=== PATIENT | female | born 1965 | race Caucasian/White ===

== ENCOUNTER → 2018-09-07 14:15 | Emergency (ER) | payer BC ==
[~2018-09-07 14:15] MED LIST: cloNIDine TAB* 0.1 MG PO ONE
[2018-09-07 16:52] LABS: ABS Basophils 0.1 10^3/ul (0-0.2); ABS Eosinophils 0.2 10^3/ul (0-0.6); ABS Lymphocytes 3.4 10^3/ul (1.0-4.8); ABS Monocytes 0.6 10^3/ul (0-0.8); ABS Neutrophils 5.9 10^3/ul (1.5-7.7); ABS Nucleated RBC 0 10^3/ul; Eosinophil % 2.1 %; Hematocrit 43 % (33-41); Hemoglobin 14.2 g/dL (12.0-16.0); Lymphocyte % 33.3 %; Mean Corpuscular HGB Conc 33 g/dL (31-36); Mean Corpuscular Hemoglobin 27 pg (27-31); Mean Corpuscular Volume 82 fL (80-97); Mean Platelet Volume 6.4 fL (7.4-10.4); Nucleated Red Blood Cells % 0.2; Platelet Count 372 10^3/uL (150-450); Red Blood Count 5.24 10^6 /uL (3.70-4.87); Red Cell Distribution Width 14 % (10.5-15); White Blood Count 10.1 10^3/uL (3.5-10.8)
[2018-09-07 16:56] LABS: Urine Appearance Clear; Urine Bacteria Absent (Absent); Urine Bilirubin Negative (Negative); Urine Blood 1+ (Negative); Urine Color Straw; Urine Glucose Negative (Negative); Urine Ketones Negative (Negative); Urine Nitrite Negative (Negative); Urine Protein Negative (Negative); Urine Red Blood Cell Trace(0-2/hpf) (Absent); Urine Specific Gravity 1.006 (1.010-1.030); Urine Urobilinogen Negative (Negative); Urine White Blood Cell Absent (Absent)
[2018-09-07 17:08] LABS: BUN/Creatinine Ratio 21.9 (8-20); C Reactive Protein 13.2 mg/L (<8.01); EGFR African American 73.8 (>60); Potassium 4.2 mmol/L (3.5-5.0); Total Bilirubin 0.3 mg/dL (0.2-1.0)
--- NOTE | 2018-09-07 17:37 | ED ---
GI/ HPI - HPI Summary HPI Summary: A 53 y/o female presents to [facility] with a chief complaint of flank pain. She has had the pain for days and says that today is the day that her pain is the worst. Her pain is intermittent and radiates to her back. She denies CP or SOB. She has a Hx of kidney stones, but has no other PMHx. She rates her pain as a 9/10 in severity but refused pain medication. - History of Current Complaint Chief Complaint: EDFlankPain Time Seen by Provider: 09/07/18 17:13 Stated Complaint: RIGHT SHOULDER PAIN PER PT Hx Obtained From: Patient Onset/Duration: Started Days Ago, Still Present Timing: Intermittent, Lasting Days Severity: Moderate Current Severity: Severe Pain Intensity: 9 - out of 10 Location of Pain: Flank Pain Characteristics: Unable to describe Pain Radiates to: Back Associated Signs and Symptoms: Positive: Back Pain. Negative: Fever, Chest Pain - Allergy/Home Medications Allergies/Adverse Reactions: Allergies Allergy/AdvReac Type Severity Reaction Status Date / Time gluten Allergy Stomach Verified 09/07/18 14:21 Cramps MS Diphenhydramine AdvReac Hallucinati Verified 05/31/14 10:43 [From Benadryl] ons Home Medications: Home Medications Estradiol PATCH 0.0375/DAY* 1 patch SUBDERMAL DAILY 09/07/18 [History Confirmed 09/07/18] Glutamine 1 tab PO DAILY 09/07/18 [History Confirmed 09/07/18] PMH/Surg Hx/FS Hx/Imm Hx Endocrine/Hematology History: Reports: Hx Thyroid Disease Denies: Hx Diabetes Cardiovascular History: Comment Only: Hx Hypertension - IN PAT BP 140/97 Respiratory History: Denies: Hx Asthma, Hx Chronic Obstructive Pulmonary Disease (COPD) GI History: Denies: Hx Ulcer History: Reports: Hx Kidney Stones Sensory History: Reports: Hx Contacts or Glasses - GLASSES Opthamlomology History: Reports: Hx Contacts or Glasses - GLASSES - Cancer History Hx Chemotherapy: No Hx Radiation Therapy: No - Surgical History Surgery Procedure, Year, and Place: 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 1991 TUBAL LIGATION [place]. Kidney stone, stent place ment. Total Hysterectomy Hx Anesthesia Reactions: No Infectious Disease History: No Infectious Disease History: Denies: Hx Clostridium Difficile, Hx Hepatitis, Hx Human Immunodeficiency Virus (HIV), Hx of Known/Suspected MRSA, Traveled Outside the [place] in Last 30 Days - Family History Known Family History: Negative: Blood Disorder - Social History Alcohol Use: Occasionally Substance Use Type: Reports: None Smoking Status (MU): Former Smoker Type: Cigarettes Amount Used/How Often: LESS THEN 1PPD Length of Time of Smoking/Using Tobacco: 10 YRS Review of Systems Negative: Fever Negative: Chest Pain Negative: Shortness Of Breath Positive: flank pain Positive: Myalgia - back pain radiating from flank All Other Systems Reviewed And Are Negative: Yes Physical Exam - Summary Physical Exam Summary: Appearance: Well appearing, no pain distress Skin: warm, dry, reflects adequate perfusion Head/face: normal Eyes: EOMI, JEANNINE ENT: normal Neck: supple, non-tender Respiratory: CTA, breath sounds present Cardiovascular: RRR, pulses symmetrical Abdomen: tenderness right flank, soft Musculoskeletal: normal, strength/ROM intact Neuro: normal, sensory motor intact, A&Ox3 Triage Information Reviewed: Yes Vital Signs On Initial Exam: Initial Vitals Temp Pulse Resp BP Pulse Ox 97.2 F 92 20 162/92 96 09/07/18 14:19 09/07/18 14:19 09/07/18 14:19 09/07/18 14:19 09/07/18 14:19 Vital Signs Reviewed: Yes Diagnostics - Vital Signs Vital Signs Temp Pulse Resp BP Pulse Ox 09/07/18 16:53 106 176/130 97 09/07/18 16:52 98 96 09/07/18 16:01 99.7 F 95 20 152/72 96 09/07/18 14:19 97.2 F 92 20 162/92 96 - Laboratory Lab Results: Lab Results 09/07/18 09/07/18 09/07/18 Range/Units 16:15 16:44 16:44 WBC 10.1 (3.5-10.8) 10^3/uL RBC 5.24 H (3.70-4.87) 10^6 /uL Hgb 14.2 (12.0-16.0) g/dL Hct 43 H (33-41) % MCV 82 (80-97) fL MCH 27 (27-31) pg MCHC 33 (31-36) g/dL RDW 14 (10.5-15) % Plt Count 372 (150-450) 10^3/uL MPV 6.4 L (7.4-10.4) fL Neut % (Auto) 58.6 % Lymph % (Auto) 33.3 % [place] % (Auto) 5.5 % Eos % (Auto) 2.1 % Baso % (Auto) 0.5 % Absolute Neuts (auto) 5.9 (1.5-7.7) 10^3/ul Absolute Lymphs (auto) 3.4 (1.0-4.8) 10^3/ul Absolute Monos (auto) 0.6 (0-0.8) 10^3/ul Absolute Eos (auto) 0.2 (0-0.6) 10^3/ul Absolute Basos (auto) 0.1 (0-0.2) 10^3/ul Absolute Nucleated RBC 0 10^3/ul Nucleated RBC % 0.2 Sodium 137 (135-145) mmol/L Potassium 4.2 (3.5-5.0) mmol/L Chloride 106 (101-111) mmol/L Carbon Dioxide 25 (22-32) mmol/L Anion Gap 6 (2-11) mmol/L BUN 21 (6-24) mg/dL Creatinine 0.96 H (0.51-0.95) mg/dL Est GFR ( Amer) 73.8 (>60) Est GFR (Non-Af Amer) 61.0 (>60) BUN/Creatinine Ratio 21.9 H (8-20) Glucose 97 (70-100) mg/dL Lactic Acid (0.5-2.0) mmol/L Calcium 10.0 (8.6-10.3) mg/dL Total Bilirubin 0.30 (0.2-1.0) mg/dL AST 29 (13-39) U/L ALT 17 (7-52) U/L Alkaline Phosphatase 95 (34-104) U/L C-Reactive Protein 13.20 H (<8.01) mg/L Total Protein 8.0 (6.4-8.9) g/dL Albumin 4.0 (3.2-5.2) g/dL Globulin 4.0 (2-4) g/dL Albumin/Globulin Ratio 1.0 (1-3) Lipase 22 (11.0-82.0) U/L Urine Color Straw Urine Appearance Clear Urine pH 5.0 (5-9) Ur Specific Harrold 1.006 L (1.010-1.030) Urine Protein Negative (Negative) Urine Ketones Negative (Negative) Urine Blood 1+ A (Negative) Urine Nitrate Negative (Negative) Urine Bilirubin Negative (Negative) Urine Urobilinogen Negative (Negative) Ur Leukocyte Esterase Negative (Negative) Urine WBC (Auto) Absent (Absent) Urine RBC (Auto) Trace(0-2/hpf) (Absent) Urine Bacteria Absent (Absent) Urine Glucose Negative (Negative) 09/07/18 Range/Units 16:44 WBC (3.5-10.8) 10^3/uL RBC (3.70-4.87) 10^6 /uL Hgb (12.0-16.0) g/dL Hct (33-41) % MCV (80-97) fL MCH (27-31) pg MCHC (31-36) g/dL RDW (10.5-15) % Plt Count (150-450) 10^3/uL MPV (7.4-10.4) fL Neut % (Auto) % Lymph % (Auto) % [place] % (Auto) % Eos % (Auto) % Baso % (Auto) % Absolute Neuts (auto) (1.5-7.7) 10^3/ul Absolute Lymphs (auto) (1.0-4.8) 10^3/ul Absolute Monos (auto) (0-0.8) 10^3/ul Absolute Eos (auto) (0-0.6) 10^3/ul Absolute Basos (auto) (0-0.2) 10^3/ul Absolute Nucleated RBC 10^3/ul Nucleated RBC % Sodium (135-145) mmol/L Potassium (3.5-5.0) mmol/L Chloride (101-111) mmol/L Carbon Dioxide (22-32) mmol/L Anion Gap (2-11) mmol/L BUN (6-24) mg/dL Creatinine (0.51-0.95) mg/dL Est GFR ( Amer) (>60) Est GFR (Non-Af Amer) (>60) BUN/Creatinine Ratio (8-20) Glucose (70-100) mg/dL Lactic Acid 0.6 (0.5-2.0) mmol/L Calcium (8.6-10.3) mg/dL Total Bilirubin (0.2-1.0) mg/dL AST (13-39) U/L ALT (7-52) U/L Alkaline Phosphatase (34-104) U/L C-Reactive Protein (<8.01) mg/L Total Protein (6.4-8.9) g/dL Albumin (3.2-5.2) g/dL Globulin (2-4) g/dL Albumin/Globulin Ratio (1-3) Lipase (11.0-82.0) U/L Urine Color Urine Appearance Urine pH (5-9) Ur Specific Harrold (1.010-1.030) Urine Protein (Negative) Urine Ketones (Negative) Urine Blood (Negative) Urine Nitrate (Negative) Urine Bilirubin (Negative) Urine Urobilinogen (Negative) Ur Leukocyte Esterase (Negative) Urine WBC (Auto) (Absent) Urine RBC (Auto) (Absent) Urine Bacteria (Absent) Urine Glucose (Negative) Result Diagrams: 09/07/18 16:44 09/07/18 16:44 Lab Statement: Any lab studies that have been ordered have been reviewed, and results considered in the medical decision making process. - Radiology CXR Radiology Interpretation Completed By: ED Physician Summary of Radiographic Findings: no acute process. Pending official imaging report. - CT abdomen/pelvis CT Interpretation Completed By: Radiologist Summary of CT Findings: 1. Stable colonic diverticulosis without evidence for acute diverticulitis. 2. No visible renal, ureteral or bladder calculi. ED physician has reviewed this imaging report. GIGU Course/Dx - Course Course Of Treatment: A 53 y/o female presents to [facility] with a chief complaint of flank pain. She has had the pain for days and says that today is the day that her pain is the worst. The physical exam revealed tenderness right flank. Blood work chemistries and urines obtained. CXR showed no acute process. Abdomen /pelvis CT impression: 1. Stable colonic diverticulosis without evidence for acute diverticulitis. 2. No visible renal, ureteral or bladder calculi. The patient will be discharged and follow up with her PCP. She is agreeable with this plan. - Diagnoses Differential Diagnoses - Female: Appendicitis, Pancreatitis, Urinary Tract Infection, Ureteral Calculi Provider Diagnoses: Flank pain Discharge - Sign-Out/Discharge Documenting (check all that apply): Patient Departure - DC Patient Received Moderate/Deep Sedation with Procedure: No - Discharge Plan Condition: Stable Disposition: HOME Patient Education Materials: Flank Pain (ED) Referrals: Jyothi Arevalo PA [Primary Care Provider] - 3 Days Additional Instructions: Return to the ED if you experience any new or worsening symptoms. - Billing Disposition and Condition Condition: STABLE Disposition: Home - Attestation Statements Document Initiated by Scribe: Yes Documenting Scribe: Zay Wilburn Provider For Whom Scribe is Documenting (Include Credential): Eliezer Park MD Scribe Attestation: Zay Smith, scribed for Eliezer Park MD on 09/07/18 at 1847. Scribe Documentation Reviewed: Yes Provider Attestation: The documentation as recorded by the Zay foster accurately reflects the service I personally performed and the decisions made by Eliezer gomes MD Status of Scribe Document: Viewed
[2018-09-07 18:46] VITALS: BP 167/112
== END | disposition home or self-care (01) ==
LOC: ED 14:15
DX: R10.9 Unspecified abdominal pain (principal); E07.9 Disorder of thyroid, unspecified; Z87.891 Personal history of nicotine dependence
CPT/HCPCS: 36415; 71046; 74176; 80053; 81003; 81015; 83605; 83690; 85025; 86140; 99283

== ENCOUNTER 2019-05-10 06:47 | Inpatient (IN) | payer BC ==
[~2019-05-10 06:47] MED LIST changes: +Buffered Lidocaine 1% SYRIN* 1 ML/SYRINGE INTRADERM ONE; +Dexamethasone IV* 4 MG/ML 1 ML (4 MG) IV SLOW PU ONE; +DiMENhydriNATE IV* 50 MG/ML VIAL IV PUSH PRN; +Famotidine IV* 10 MG/ML 2 ML (20 mg) IV ONE; +Lactated Ringers 1000 ML Bag* 1,000 ML IV SCH; +Naloxone* 0.4 MG/ML 1 ML VIAL IV PRN; +Ondansetron INJ* 2 MG/ML VIAL IV ONE; +PROCHLORPERAZINE INJ 5 MG/ML 2 ML VIAL IV PRN; -cloNIDine TAB* 0.1 MG PO ONE
[2019-05-10] MEDS ORDERED: Dexamethasone IV* 4 MG/ML 1 ML (4 MG) ONE (07:04)
[2019-05-10] MEDS ORDERED: Famotidine IV* 10 MG/ML 2 ML (20 mg) ONE (07:04)
[2019-05-10] MEDS ORDERED: Ondansetron INJ* 2 MG/ML VIAL ONE (07:04)
[2019-05-10] MEDS ORDERED: ceFAZolin 2 GM PREMIX in ORs 2 GM/50 ML BAG ONE (07:04)
[2019-05-10] MEDS ORDERED: ceFAZolin 1 GM ADVAN(*) 1 GM ADDV.VIAL IVPB ONE (07:04)
[2019-05-10] MEDS ORDERED: Heparin VIAL(*) 5000 UNITS/ML VIAL (FIVE THOUSAND) ONE (07:04)
[2019-05-10] MEDS ORDERED: Rocuronium* 10 MG/ML VIAL ONE (07:45)
[2019-05-10] MEDS ORDERED: fentaNYL* 50 MCG/ML 5 ML VIAL (250 MCG VIAL) ONE (07:45)
[2019-05-10] MEDS ORDERED: Lidocaine 2% PF * 5 ML VIAL ONE (07:46)
[2019-05-10] MEDS ORDERED: PROCHLORPERAZINE INJ 5 MG/ML 2 ML VIAL ONE (07:46)
[2019-05-10] MEDS ORDERED: Phenylephrine 10 MG/ML VIAL* 1 ML VIAL ONE (07:46)
[2019-05-10] MEDS ORDERED: Midazolam* 1 MG/ML 5 ML VIAL (5 MG) ONE (07:46)
[2019-05-10] MEDS ORDERED: Acetaminophen IV 1GM/100ML * 100 ML ONE (07:46)
[2019-05-10] MEDS ORDERED: KETAMINE HCL* 50 MG/ML 10 ML VIAL ONE (07:46)
[2019-05-10] MEDS ORDERED: Sugammadex * 200 MG/2 ML VIAL IV PUSH ONE (07:46)
[2019-05-10] MEDS ORDERED: Propofol* 10 MG/ML 20 ML BTL ONE (07:46)
[2019-05-10] MEDS ORDERED: Bupivacaine 0.25% EPI 200,000* 30 ML SDV ONE (08:25)
[2019-05-10] MEDS ORDERED: Methylene Blue 0.5 %* 50 MG/10 ML AMP IV ONE (08:25)
[2019-05-10] MEDS ORDERED: HYDROmorphone INJ1* 1 MG/ML SYRINGE ONE ×2 (10:30→12:17)
--- NOTE | 2019-05-10 11:58 | BRIEFOPN ---
Brief Operative/Procedure Note - Operation Details Pre-Op Diagnosis: Obesity Post-Op Diagnosis: Obesity Procedures: Laparoscopic nathaniel en y gastric bypass Surgeon(s)/Proceduralists: Dr. Gerald De Leon. Assist, EDILSON Hdz. EDILSON Rodriguez. Anesthesia: GETA Estimated Blood Loss: <50cc Findings: As above Specimen(s)/Culture(s) Description: None Complications: None
[2019-05-10] MEDS ORDERED: HYDROcodone/ACET. 7.5/325 LIQ* 15 ML UDC PO PRN (12:16)
[2019-05-10] MEDS ORDERED: fentaNYL* 50 MCG/ML 2 ML VIAL (100 MCG VIAL) ONE (12:16)
[2019-05-10] MEDS ORDERED: Ondansetron INJ* 2 MG/ML VIAL IV PRN (12:16)
[2019-05-10] MEDS ORDERED: HYDROmorphone INJ1* 1 MG/ML SYRINGE IV SLOW PU PRN (12:16)
[2019-05-10] MEDS ORDERED: HYDROmorphone INJ* 0.5 MG/0.5 ML SYRINGE IV SLOW PU PRN (12:16)
[2019-05-10] MEDS ORDERED: DiMENhydriNATE IV* 50 MG/ML VIAL ONE (12:17)
[2019-05-10] MEDS: fentaNYL* 50 MCG/ML 2 ML VIAL (100 MCG VIAL) IV PRN ×2 (12:19→12:28)
[2019-05-10] MEDS: HYDROmorphone INJ1* 1 MG/ML SYRINGE IV PRN ×3 (12:21→12:38)
[2019-05-10] MEDS ORDERED: Ketorolac INJ* 30 MG/ML 1 ML VIAL ONE (12:30)
[2019-05-10] MEDS ORDERED: Ketorolac INJ* 30 MG/ML 1 ML VIAL IV SCH (13:00)
[2019-05-10] MEDS: Lactated Ringers 1000 ML Bag* 1,000 ML IV SCH ×2 (13:42→20:09)
[2019-05-10] MEDS: Ketorolac INJ* 30 MG/ML 1 ML VIAL IV SCH ×2 (17:47→23:57)
[2019-05-10] MEDS: Heparin VIAL(*) 5000 UNITS/ML VIAL (FIVE THOUSAND) SUBCUT SCH (21:38)
[2019-05-10] MEDS: Famotidine IV* 10 MG/ML 2 ML (20 mg) IV SLOW PU SCH (21:38)
--- NOTE | 2019-05-10 21:42 | OP ---
CC: EDILSON Huang; [facility] OPERATIVE REPORT: DATE OF OPERATION: 05/10/19 DATE OF : 67 SURGEON: Gerald De Leon MD ASSISTANTS: 1. EDILSON Ferguson 2. EDILSON Ridley ANESTHESIOLOGIST: Karson Lucia MD ANESTHESIA: General endotracheal. PRE-OPERATIVE DIAGNOSES: Clinically severe obesity and cholelithiasis. POST-OPERATIVE DIAGNOSES: Clinically severe obesity and cholelithiasis OPERATIVE PROCEDURE: Laparoscopic Iveth-en-Y gastric bypass and laparoscopic cholecystectomy. ESTIMATED BLOOD LOSS: Less than 20 mL. IV FLUIDS: Crystalloid. SPECIMENS: Gallbladder. DRAINS: None. COMPLICATIONS: None. COUNT: Instrument, needle and sponge counts were correct. DESCRIPTION OF PROCEDURE: The patient was brought to the operating room and placed on the table supine. Sequential compression devices were placed on both lower extremities. General anesthesia was administered. She was positioned and padded appropriately. She was prepped and draped in usual sterile fashion and received appropriate intravenous antibiotics. A time-out was performed. Local anesthetic was infiltrated into the skin and soft tissue prior to making each incision. Entry to the abdomen was through the left upper quadrant accommodating a 12 mm optical trocar. After accessing the peritoneal cavity, carbon dioxide was insufflated to a pressure of 15 mmHg. Under direct visualization, 12 mm trocar was placed in the right upper quadrant and supraumbilical region. The 5-mm trocars were placed in the right upper quadrant medially and in the subxiphoid position. The gallbladder was first addressed. The patient was positioned in reverse Trendelenburg with right side up. Gallbladder was identified. It did not appear to be acutely inflamed. The fundus was grasped, retracted, cephalad. The peritoneum investing the gallbladder was dissected and peeled away to identify the gallbladder wall proper and then dissection proceeded medially and laterally, dissecting out the cystic duct and the cystic artery. Critical view was obtained and the artery was divided with the LigaSure. Cystic artery was doubly clipped and then divided. The gallbladder was freed from attachments to the liver using the Cook cautery as staying in an avascular plane. At one point, the gallbladder was inadvertently entered and clips were placed on the gallbladder to control spillage. The gallbladder once freed was placed in an endoscopic retrieval bag and retrieved to the left upper quadrant port site. Inspection revealed hemostasis to be good and clips were intact. Lavage was performed with 1 L warm saline in the right upper quadrant until clear. Next, gastric bypass was performed. A 5 mm port was removed from the subxiphoid position and placed in the left upper quadrant. A Santiago liver retractor was placed in the subxiphoid position and used to elevate the left lobe of the liver. The gastric anatomy appeared normal. Mobilization of the fundus of the stomach away from the left ebenezer was performed and then perigastric dissection was undertaken on the lesser curvature and the lesser sac was entered. Gastric pouch was fashioned with several fires of the EndoGIA stapler with pickard cartridges to a volume approximating 15-30mL. Staple lines were intact and hemostatic. Omentum was then retracted cephalad and divided down the mid line with the LigaSure. Transverse colon was retracted cephalad and the ligament of Treitz was identified. The jejunum was measured out 50 cm. At which point, the loop was sutured to the lateral staple line on the gastric pouch with interrupted 2-0 silk. The gastrojejunal anastomosis was performed with the EndoGIA stapler using a 30 mm pickard cartridge and the common gastroenterotomy was run closed with 3-0 PDS over a 34- Persian gastric lavage tube. The loop of jejunum was divided to the left of the pouch to complete the anastomosis and then the anastomosis was tested with methylene blue dye solution instilled to the orogastric tube. No leak was identified. The Iveth limb was then measured out 75 cm, at which point a functional end-to- side jejunojejunostomy was created with a 60 mm linear stapler using pickard cartridge. The enterotomy was closed with interrupted [id number] sutures with 3-0 PDS and 3-0 silk. The mesenteric defect was closed with interrupted [id number] sutures with 3-0 silk. After assuring hemostasis and assuring again that clips were intact in the gallbladder fossa and after assuring the proper orientation of the Iveth limb, a Santiago liver retractor was removed. All the ports were removed and carbon dioxide was released. The skin incisions were closed with 4-0 Monocryl and then DermaFlex was applied. The patient tolerated the procedure well. She was extubated uneventfully. She was transferred to the recovery room in a stable condition. [id number]/[facility] #: [id number] [facility]
[2019-05-11] MEDS: Lactated Ringers 1000 ML Bag* 1,000 ML IV SCH (02:51)
[2019-05-11] MEDS: Heparin VIAL(*) 5000 UNITS/ML VIAL (FIVE THOUSAND) SUBCUT SCH ×3 (05:37→21:50)
[2019-05-11] MEDS: Ketorolac INJ* 30 MG/ML 1 ML VIAL IV SCH ×3 (05:38→17:37)
--- NOTE | 2019-05-11 09:35 | PN ---
Progress Note - Progress Note Date of Service: 05/11/19 SOAP: Subjective: Not much pain. Has been walking. Had loose BM. Objective: Vital Signs Temp 98.9 F 05/11/19 07:16 Pulse 100 05/11/19 07:16 Resp 18 05/11/19 08:00 BP 135/74 05/11/19 07:16 Pulse Ox 93 05/11/19 08:00 Gen:NAD Abd: incisions c/d/i; no erythema; soft and NT Intake & Output 05/10/19 05/11/19 05/11/19 18:59 06:59 18:59 Intake Total 1999 1923 Output Total 100 250 0 Balance 1900 1674 0 Weight 245 lb Intake: IV Fluids 1999 1923 LR 1999 1923 Oral 0 Output: Urine 100 250 0 Other: Estimated Void Medium # Voids 1 Assessment: POD#1 s/p LRYGB+LAP SOLITARIO. Stable. Plan: Jordy clears. Home in AM if cont to do well.
[2019-05-11] MEDS: Acetaminophen ADULT LIQ* 650 MG/20.3 ML UDC PO PRN ×3 (09:44→21:49)
[2019-05-11] MEDS: Famotidine IV* 10 MG/ML 2 ML (20 mg) IV SLOW PU SCH ×2 (09:46→21:50)
[2019-05-11] MEDS: D5W 1/2 NS KCl 20 Meq 1000 ML* 1,000 ML IV SCH ×2 (11:25→17:43)
[2019-05-12] MEDS: D5W 1/2 NS KCl 20 Meq 1000 ML* 1,000 ML IV SCH ×3 (01:47→18:45)
[2019-05-12] MEDS: Ketorolac INJ* 30 MG/ML 1 ML VIAL IV SCH ×2 (03:38→05:49)
[2019-05-12] MEDS: Heparin VIAL(*) 5000 UNITS/ML VIAL (FIVE THOUSAND) SUBCUT SCH (06:02)
[2019-05-12] MEDS: Acetaminophen ADULT LIQ* 650 MG/20.3 ML UDC PO PRN (06:06)
--- NOTE | 2019-05-12 07:54 | PN ---
Progress Note - Progress Note Date of Service: 05/12/19 Note: Subjective: 53 yo F POD# 2. She is reporting none to very minimal pain. Today we learn she passed some "purple" appearing stool, flatus, and subsequently felt light headed while on toilet. Says she feels good with no symptoms otherwise. Denies fever, chills, palpitations, SOB. She has been following oral hydration guidelines. Objective: Vital Signs - 8 hr 05/12/19 05/12/19 05/12/19 03:38 05:35 07:26 Temperature 97.9 F 98.2 F Pulse Rate 90 98 Respiratory 16 16 Rate Blood Pressure 134/78 95/67 (mmHg) O2 Sat by Pulse 98 98 100 Oximetry 05/12/19 07:36 Temperature Pulse Rate Respiratory 16 Rate Blood Pressure (mmHg) O2 Sat by Pulse 100 Oximetry Intake and Output Last 24 Hours 05/10/19 05/11/19 05/12/19 05/13/19 06:59 06:59 06:59 06:59 Intake Total 3924 3477 Output Total 350 0 Balance 3574 3477 Weight 245 lb Intake: IV Fluids 3924 2907 D5W 1/2 NS 20 meq KCL 1917 LR 3924 990 Oral 0 570 Output: Urine 350 0 Other: Estimated Void Medium Medium Date of Last Bowel 05/12/2019 Movement # Bowel Movements 1 Estimated Stool Amount Medium # Voids 1 3 PEX: General: Alert and in no acute distress Integumentary: No jaundice, rashes, petechia ABD: Soft, nondistended, nontender. Incisions closed and without drainage or erythema Assessment and plan: 53 yo F POD#2, tachycardic with episode of light headedness and possible hematochezia while on toilet. In suspicion of bleeding, will D/c heparin, toradol, and order CBC with subsequent serial H&H.
[2019-05-12] MEDS: Famotidine IV* 10 MG/ML 2 ML (20 mg) IV SLOW PU SCH ×2 (08:43→22:00)
[2019-05-12 09:17] LABS: ABS Basophils 0.1 10^3/ul (0-0.2); ABS Lymphocytes 3.8 10^3/ul (1.0-4.8); ABS Monocytes 0.6 10^3/ul (0-0.8); ABS Neutrophils 6.9 10^3/ul (1.5-7.7); Eosinophil % 0.4 %; Hematocrit 26 % (35-47); Hemoglobin 8.9 g/dL (12.0-16.0); Lymphocyte % 33.2 %; Mean Corpuscular HGB Conc 34 g/dL (31-36); Mean Corpuscular Hemoglobin 29 pg (27-31); Mean Corpuscular Volume 86 fL (80-97); Platelet Count 231 10^3/uL (150-450); Red Blood Count 3.08 10^6 /uL (3.70-4.87); Red Cell Distribution Width 13 % (10-15); White Blood Count 11.4 10^3/uL (3.5-10.8)
[2019-05-12 13:57] LABS: Hematocrit 24 % (35-47); Hemoglobin 8.5 g/dL (12.0-16.0)
[2019-05-12 18:10] LABS: Hematocrit 25 % (35-47); Hemoglobin 8.3 g/dL (12.0-16.0)
[2019-05-13] MEDS: D5W 1/2 NS KCl 20 Meq 1000 ML* 1,000 ML IV SCH ×2 (03:07→13:18)
[2019-05-13 05:12] LABS: Hematocrit 21 % (35-47)
--- NOTE | 2019-05-13 07:40 | PN ---
Progress Note - Progress Note Date of Service: 05/13/19 SOAP: Subjective: Feeling well. Had loose BM today. No makayla blood. Denies tarry stool since yesterday. Not lightheaded; no CP/SOB. Objective: Vital Signs Temp 98.2 F 05/13/19 03:11 Pulse 88 05/13/19 03:11 Resp 16 05/13/19 03:11 BP 113/59 05/13/19 03:11 Pulse Ox 99 05/13/19 03:11 Gen: NAD Abd: incisions c/d/i; no erythema; soft and NT Intake & Output 05/12/19 05/13/19 05/13/19 18:59 06:59 18:59 Intake Total 2849 1260 Output Total 300 500 450 Balance 2549 760 -450 Intake: IV Fluids 1918 D5W 1/2 NS 20 meq KCL 1918 Oral 930 1260 Output: Urine 500 450 Liquid Stool 300 Other: Estimated Void Medium # Bowel Movements 4 1 Estimated Stool Amount Small Small # Voids 5 4 Laboratory Results - last 24 hr 05/12/19 05/12/19 05/12/19 09:08 13:44 17:57 WBC 11.4 H RBC 3.08 L Hgb 8.9 L 8.5 L 8.3 L Hct 26 L 24 L 25 L MCV 86 MCH 29 MCHC 34 RDW 13 Plt Count 231 MPV 7.0 L Neut % (Auto) 60.9 Lymph % (Auto) 33.2 Vance % (Auto) 5.0 Eos % (Auto) 0.4 Baso % (Auto) 0.5 Absolute Neuts (auto) 6.9 Absolute Lymphs (auto) 3.8 Absolute Monos (auto) 0.6 Absolute Eos (auto) 0.0 Absolute Basos (auto) 0.1 Absolute Nucleated RBC 0.0 Nucleated RBC % 0.0 05/13/19 04:42 WBC RBC Hgb 7.0 L Hct 21 L MCV MCH MCHC RDW Plt Count MPV Neut % (Auto) Lymph % (Auto) Vance % (Auto) Eos % (Auto) Baso % (Auto) Absolute Neuts (auto) Absolute Lymphs (auto) Absolute Monos (auto) Absolute Eos (auto) Absolute Basos (auto) Absolute Nucleated RBC Nucleated RBC % Assessment: POD#3 s/p LRYGB. H/o iron deficiency. Post op BPR likely due to bleeding from anastamosis. Hemodynamically stable. Plan: Will continue to follow H/H and transfuse if drops further. If remains stable, would consider d/c later. Shower. D/w patient.
[2019-05-13] MEDS: Famotidine IV* 10 MG/ML 2 ML (20 mg) IV SLOW PU SCH (09:28)
[2019-05-13 11:34] LABS: Hematocrit 23 % (35-47); Hemoglobin 7.9 g/dL (12.0-16.0)
[2019-05-13 11:57] VITALS: BP 126/70
--- NOTE | 2019-05-13 14:01 | DS ---
Discharge Summary Surgeon: Haley ST Admit Date: 05/10/19 Discharge Date:05/13/19 Admission DX:Morbid Obesity Discharge DX:Morbid Obesity, anemia Condition at Discharge:Stable Date of D/C PEX: Chest:CTA CVS:RRR ABD: Incisions C/D/I Procedures Performed:Laparoscopic Iveth en Y Gastric Bypass Hospital Course:Patient admitted for the above named surgery, tolerated it well and was transferred to the [facility] for post operative care. On POD 1 a bariatric clear diet was started. post op day 2 patient reported melena and bloody BM, and had a CBC and was found to be low, 8.9, (pre op Hgb was 15). H&H was drawn of 8.9 with orders for every 6 hours to moniter. 8.5, 8.3, 7, 7.9. After the reverse of the trend with 7.9 and the lack of any symptoms, no more melena or BRBPR, patient was discharged home with an order for a repeat H&H on may prior to her follow up appointment Discharge instructions were given to the patient regarding Diet, Medications, Activity, and post operative Follow up. All Questions were answered. Discharged Home in Stable Condition on MAY 13, 2019
[2019-05-15] MEDS ORDERED: [UNRECOGNIZED DRUG - OTHER] TRANSDERM SCH (09:00)
[2019-05-15] MEDS ORDERED: ESTRADIOL TRANSDERM SCH (09:00)
== END 2019-05-13 14:30 | disposition home or self-care (01) | DRG 403 ==
LOC: AA 06:47 → SSU 12:16
PROVIDERS: ADMIT Surgery; ATTEND Surgery
PROC: 0D164ZA Bypass Stomach to Jejunum, Percutaneous Endoscopic Approach (ICD-10-PCS; principal; 2019-05-10 08:45)
PROC: 0FT44ZZ Resection of Gallbladder, Percutaneous Endoscopic Approach (ICD-10-PCS; 2019-05-10 08:45)
DX: E66.01 Morbid (severe) obesity due to excess calories (principal); K80.10 Calculus of gallbladder with chronic cholecystitis without obstruction; K92.1 Melena; D64.9 Anemia, unspecified; G47.33 Obstructive sleep apnea (adult) (pediatric); E03.9 Hypothyroidism, unspecified; K80.20 Calculus of gallbladder without cholecystitis without obstruction; E61.1 Iron deficiency; R00.0 Tachycardia, unspecified; R42 Dizziness and giddiness; Z68.43 Body mass index [BMI] 50.0-59.9, adult; Z90.710 Acquired absence of both cervix and uterus; Z88.8 Allergy status to other drugs, medicaments and biological substances; Z87.891 Personal history of nicotine dependence
CPT/HCPCS: 36415; 85014; 85018; 85025; 86850; 86900; 86901; 88304; A9270-GY; C1776; J0690; J0780; J1100; J1170; J1240; J1644; J1885; J2250; J2405; J2704; J3010